=== PATIENT | male | born 1985 | race Hispanic/Latino ===

== ENCOUNTER 2018-01-11 13:17 | Emergency (ER) | payer SELFPAY ==
[2018-01-11] MEDS ORDERED: HYDROcodone/Acetaminophen 5/325 mg Tablet ONE (14:59)
--- NOTE | 2018-01-11 15:22 | RAD ---
RIGHT ANKLE THREE VIEWS: History: Fall, Right ankle injury. FINDINGS: Nondisplaced comminuted oblique fracture is present at and just above the level of the ankle mortise involving the lateral malleolus. There is prominent overlying soft tissue swelling. Ankle mortise is intact. IMPRESSION: Comminuted nondisplaced Sparks class C fracture right ankle with overlying soft tissue swelling. POS: [facility]
== END 2018-01-11 15:05 | disposition home or self-care (01) ==
LOC: ERS 13:17
DX: S82.61XA Displaced fracture of lateral malleolus of right fibula, initial encounter for closed fracture (principal); W11.XXXA Fall on and from ladder, initial encounter
CPT/HCPCS: 27786

== ENCOUNTER 2020-12-06 22:48 | Emergency (ER) | payer SELFPAY ==
[2020-12-06 23:33] LABS: #Basophils 0.1 thou/uL (0.0-0.2); #Eosinphils 0.1 thou/uL (0.0-0.7); #Lymphocytes 2.5 thou/uL (1.20-3.40); #Monocytes 0.8 thou/uL (0.11-0.59); #Neutrophils 2.9 thou/uL (1.40-6.50); %Basophils 0.9 % (0.0-1.0); %Eosinophils 2.2 % (0.0-10.0); %Lymphocytes 39.5 % (21.0-51.0); %Monocytes 12.1 % (0.0-10.0); %Neutrophils 45.4 % (42.0-75.0); Hemoglobin 14.3 g/dL (14.0-18.0); Mean Corpuscular Volume 94.1 fL (78.0-98.0); Mean Platelet Volume 7.2 fL (7.4-10.4); Platelet Count 262 thou/uL (130-400); RBC Distribution Width 12.3 % (11.5-14.5); Red Blood Cell (RBC) Count 4.47 mill/uL (4.70-6.10); White Blood Cell (WBC) Count 6.4 thou/uL (4.8-10.8)
[2020-12-06 23:53] LABS: ALT (SGPT) 137 U/L (8-55); AST (SGOT) 101 U/L (5-34); Albumin 4.7 g/dL (3.5-5.0); Alkaline Phosphatase 65 U/L (40-110); Anion Gap 18 mmol/L (10-20); BUN (Urea Nitrogen) 8 mg/dL (8.9-20.6); Bilirubin, Total 0.3 mg/dL (0.2-1.2); Calc. Creatinine Clearance 0 mL/min (70-130); Calcium 8.8 mg/dL (7.8-10.44); Carbon Dioxide 21 mmol/L (22-29); Chloride 106 mmol/L (98-107); Globulin 3.1 g/dL (2.4-3.5); Glucose 106 mg/dL (70-105); Lipase 51 U/L (8-78); Potassium 3.6 mmol/L (3.5-5.1); Protein, Total 7.8 g/dL (6.0-8.3); Sodium 141 mmol/L (136-145)
== END 2020-12-07 00:33 | disposition home or self-care (01) ==
LOC: ERS 22:48
DX: K92.1 Melena (principal)
CPT/HCPCS: 36415; 80053; 82274; 83690; 85025; 99283

== ENCOUNTER 2021-08-09 15:23 | Emergency (ER) | payer SELFPAY ==
[2021-08-09] MEDS ORDERED: Ketorolac Tromethamine 30 MG/ML VIAL ONE (16:16)
[2021-08-09] MEDS ORDERED: Cyclobenzaprine 10 MG TAB ONE (17:08)
== END 2021-08-09 17:11 | disposition home or self-care (01) ==
LOC: ERS 15:23
DX: S39.012A Strain of muscle, fascia and tendon of lower back, initial encounter (principal); S29.012A Strain of muscle and tendon of back wall of thorax, initial encounter; X58.XXXA Exposure to other specified factors, initial encounter
CPT/HCPCS: 96372; 99283; J1885